=== PATIENT | female | born 1975 | race Caucasian/White ===

== ENCOUNTER 2022-07-12 15:52 | Inpatient (IN) | payer MEDICAID ==
[~2022-07-12] VITALS: Ht 149.9 cm; Wt 77.1 kg
[2022-07-12 16:02] VITALS: BP 170/97
--- NOTE | 2022-07-12 16:39 | NUR ---
pt in room 11, had ct angio done, denies any pain, nsr on cm, o2 sat 99% ra, sr up times 2
[2022-07-12 17:13] LABS: BASOPHILS % (AUTO) 0.4 % (0.0-2.0); EOSINOPHILS % (AUTO) 0.2 % (0.0-4.0); HEMATOCRIT 35.8 % (36-48); HEMOGLOBIN 12.4 g/dL (12.0-16.0); LYMPHOCYTES # (AUTO) 1.9 K/uL (2.5-16.5); LYMPHOCYTES % (AUTO) 33.9 % (20.5-51.1); MEAN CORPUSCULAR HEMOGLOBIN 30 pg (27-31); MEAN CORPUSCULAR HGB CONC 35 g/dL (33-37); MEAN CORPUSCULAR VOLUME 86.6 fL (80-94); MONOCYTES # (AUTO) 0.4 K/uL (0.8-1.0); NEUTROPHILS # (AUTO) 3.2 K/uL (1.8-7.7); NEUTROPHILS % (AUTO) 57.5 % (42.2-75.2); PLATELET COUNT (AUTO) 224 K/uL (140-450); RED BLOOD CELL COUNT(AUTO) 4.14 MIL/uL (4.20-5.40); WHITE BLOOD COUNT (AUTO) 5.5 K/uL (4.8-10.8)
[2022-07-12 17:43] LABS: PROTHROMBIN TIME 9.7 secs (10.8-13.4)
[2022-07-12 17:43] LABS: APPEARANCE,URINE CLEAR (CLEAR); BILIRUBIN,URINE NEGATIVE (NEGATIVE); BLOOD, URINE NEGATIVE (NEGATIVE); COLOR,URINE YELLOW (YELLOW); LEUKOCYTE ESTERASE ,URINE NEGATIVE (NEGATIVE); NITRITE, URINE NEGATIVE (NEGATIVE); PH,URINE 7.5 (5.0-9.0); UGLUCOSE 3+ (NEGATIVE)
[2022-07-12 17:46] LABS: ALBUMIN 4.3 g/dL (3.4-5.0); ANION GAP 10.1 (8-16); ASPARTATE AMINOTRANSFERASE 20 U/L (15-37); CARBON DIOXIDE 29.6 mmol/L (21-32); CHLORIDE 99 mmol/L (98-107); CREATININE 0.5 mg/dL (0.6-1.3); GFR ARICAN-AMERICAN 169 mL/min (>90); GLUCOSE 227 mg/dL (74-106); POTASSIUM 3.7 mmol/L (3.5-5.1); SODIUM SERUM 135 mmol/L (136-145); TOTAL BILIRUBIN 0.3 mg/dL (0.0-1.0); UREA NITROGEN, BLOOD 14 mg/dL (7-18)
--- NOTE | 2022-07-12 18:00 | NUR ---
a/o times 4, no ac neuro deficits, nsr on cm, o2 sat 99% ra, still dizzy and double vision, sr up times 2. awaits dispo
--- NOTE | 2022-07-12 18:37 | NUR ---
teleneuro done, Dr Edward Melgoza spoke and examined pt, will call back to discuss case w ER . pt to be admitted, pt told she had stroke
[2022-07-12] MEDS ORDERED: ASPIRIN 325 MG TAB PO ONE (18:40)
[2022-07-12] MEDS ORDERED: MAG SULF 2000 MG/WATER PREMIX 50 ML IV PRN (18:55)
[2022-07-12] MEDS ORDERED: MORPHINE SULFATE 2 MG/ML SYR IVP PRN (18:55)
[2022-07-12] MEDS ORDERED: POTASSIUM CHLORIDE 10 MEQ TABER PO PRN (18:55)
[2022-07-12] MEDS ORDERED: LORazepam 2 MG/ML VIAL IVP PRN (18:55)
[2022-07-12] MEDS ORDERED: ACETAMINOPHEN 325 MG TAB PO PRN (18:55)
[2022-07-12] MEDS ORDERED: ZOLPIDEM 10 MG TAB PO PRN (18:55)
[2022-07-12] MEDS ORDERED: ONDANSETRON 4 MG/2 ML VIAL IVP PRN (18:55)
[2022-07-12] MEDS ORDERED: DOCUSATE SODIUM 100 MG GELCAP PO PRN (18:55)
[2022-07-12] MEDS ORDERED: NACL 0.9% 1,000 ML IV ONE (19:00)
--- NOTE | 2022-07-12 19:22 | NUR ---
pt report to material handler 1st shift nurse, Fariha. no distress noted in pt
--- NOTE | 2022-07-12 19:30 | NUR ---
SWAB OBTAINED AND SENT TO LAB
--- NOTE | 2022-07-12 19:35 | NUR ---
DR VOGEL AT BEDSIDE
--- NOTE | 2022-07-12 20:37 | NUR ---
REPORT CALLED TO EMILIA HICKMAN
--- NOTE | 2022-07-12 21:00 | NUR ---
TO 106B VIA GURNEY ATTACHED TO TRANSPORT MONITOR ACCOMPANIED BY 2 RNS
--- NOTE | 2022-07-12 21:00 | NUR ---
RECEIVED PT FROM ER ADMITTED TO [facility] UNIT WITH CHIEF COMPLAINTS OF DIZZINESS AND DOUBLE VISION. PT IS WITH DIAGNOSIS OF CVA AND HISTORY OF HYPERTENSION. PT IS A FULL CODE STATUS AND SHE ABLE TO AMBULATES TO RESTROOM INDEPENDENTLY. PT IS AWAKE, ALERT AND ABLE TO VERBALIZED NEEDS. SHE IS AT ROOM AIR AND CURRENTLY ON NPO DIET. IV SITE IS ON LEFT AC 22G AND INFUSING OF NS WELL OF NS 100ML/HR. SKIN INTACT. SHE IS ON STANDARD ISOLATION.
--- NOTE | 2022-07-13 00:15 | NUR ---
PT SLEEPS WELL. NO SOB OR DISTRESS.
--- NOTE | 2022-07-13 02:00 | NUR ---
PT AMBULATES INDEPENDENTLY TO RESTROOM. DENIES OF PAIN OR DISCOMFORT.
[2022-07-13 04:00] VITALS: BP 131/72
[2022-07-13 07:18] LABS: BASOPHILS % (AUTO) 0.6 % (0.0-2.0); EOSINOPHILS % (AUTO) 0.7 % (0.0-4.0); HEMATOCRIT 38.1 % (36-48); LYMPHOCYTES # (AUTO) 2.8 K/uL (2.5-16.5); MEAN CORPUSCULAR HEMOGLOBIN 30 pg (27-31); MEAN CORPUSCULAR HGB CONC 34 g/dL (33-37); MEAN CORPUSCULAR VOLUME 86.8 fL (80-94); MONOCYTES # (AUTO) 0.6 K/uL (0.8-1.0); MONOCYTES % (AUTO) 9.8 % (1.7-9.3); NEUTROPHILS # (AUTO) 2.6 K/uL (1.8-7.7); NEUTROPHILS % (AUTO) 42.9 % (42.2-75.2); PLATELET COUNT (AUTO) 246 K/uL (140-450); RED BLOOD CELL COUNT(AUTO) 4.39 MIL/uL (4.20-5.40); RED CELL DISTRIBUTION WIDTH 13.1 % (11.6-13.7); WHITE BLOOD COUNT (AUTO) 6.1 K/uL (4.8-10.8)
[2022-07-13 07:25] LABS: ANION GAP 12.5 (8-16); CARBON DIOXIDE 30.5 mmol/L (21-32); CREATININE 0.6 mg/dL (0.6-1.3)
--- NOTE | 2022-07-13 07:45 | NUR ---
PT IS ON STABLE CONDITION, DENIES OF PAIN OR DISCOMFORT. NO SOB OR DISTRESS. ALL SAFETY MEASURES ARE IN PLACE. ENDORSED TO DAY SHIFT NURSE FOR CONTINUITY OF CARE.
--- NOTE | 2022-07-13 07:56 | NUR ---
PATIENT ALERT AND RESPONSIVE. FAROESE SPEAKING. ABLE TO MAKE NEEDS KNOWN. PATIENT VERBALLY RESPONSIVE. STABLE AND AFEBRILE. BREATHING EVEN AND NON LABORED. NO SOB OR DYSPNEA. PATIENT ADMITTED WITH DX: CVA. C/O DIZZINESS UPON ADMISSION. NO C/O DIZZINESS AT THIS TIME. CARDIAC MONITORING REMAINS NORMAL SINUS RHYTHM. DENIES PALPITATIONS. DENIES CP. DENIES PAIN. CONTINUED NPO. ON IVF NS @ 100ML/HR. #22G LAC DRESSING DRY, CLEAN, AND INTACT. SKIN DRY AND INTACT. PATIENT HAS BATHROOM PRIVILEGES. PATIENT INDEPENDENT WITH ADL'S. CALL LIGHT WITHIN REACH. BED LOCKED IN LOWEST POSITION. REMINDED TO USE CALL LIGHT IN NEED OF ASSISTANCE. SAFETY MEASURES OBSERVED. PATIENT SELF REPOSITIONS. REMINDED TO REPOSITION SELF Q2H. ALL NEEDS MET. CONTINUE PLAN OF CARE.
[2022-07-13] MEDS: CLOPIDOGREL 75 MG TAB PO SCH ×2 (09:00→10:44)
[2022-07-13] MEDS: ASPIRIN 81 MG TAB.CHEW PO SCH ×2 (09:20→10:44)
--- NOTE | 2022-07-13 09:22 | NUR ---
HELD 9AM MEDS DUE TO NPO FOR SWALLOW EVAL/ PROCEDURE.
--- NOTE | 2022-07-13 09:54 | NUR ---
PATIENT HAS BEEN SCREENED AND CATEGORIZED MODERATE NUTRITION RISK. PATIENT WILL BE SEEN WITHIN 3-5 DAYS OF ADMISSION. REVIEWED BY SRINIVAS SINGH RD
[2022-07-13] MEDS ORDERED: DEXTROSE 50% 50 ML SYR IVP PRN (10:15)
[2022-07-13] MEDS: ATORVASTATIN 20 MG TAB PO SCH (10:43)
--- NOTE | 2022-07-13 10:46 | NUR ---
CALLED AND SPOKE WITH MD NOTIFIED MD OF PATIENT'S BP 165/79. MD MADE AWARE AND NO BP MEDS ORDERED. PER MD ORDER TO ADMINISTER 9AM MEDICATIONS NOW AND PATIENT CAN HAVE DIET AFTER SWALLOW EVAL. ORDERS NOTED, READ BACK, AND CARRIED OUT. PATIENT MADE AWARE.
[2022-07-13] MEDS: BLOOD GLUCOSE MONITORING 1 DEV DEV FS SCH ×3 (11:54→22:00)
[2022-07-13] MEDS: INSULIN LISPRO SLIDING SCALE 100 UNITS/ML VIAL SUBQ PRN ×2 (13:16→22:06)
--- NOTE | 2022-07-13 16:37 | NUR ---
DC PLANNING SW MET WITH PT AT BEDSIDE TO COMPLETE ASSESSMENT. PT PRIMARILY [place] SPEAKING, THEREFORE JOGGER OPERATOR SERVICE UTILIZED; [id number]/ [place]/ PT REPORTS RESIDING IN A TWO STORY HOME WITH HER SPOUSE, TWO SONS (17, 21), AND 4 COUSINS. PT IDENTIFIED MAT VELAZQUEZ, SPOUSE, EMERGENCY CONTACT. PT DECLINED TO ADD AN ADDITIONAL EC. PT REPORTS MEETING WITH PCP AT [facility], REGULARLY, LAST VISIT; 2 MONTHS AGO. PT REPORTS MEDICATION COMPLIANCE AND DENIES BARRIERS IN ACCESS TO NEEDED MEDICATIONS. PT REPORTS RECEIVING MEDICATION FROM [facility] ON [address] IN [place], WHEN NEEDED. PT REPORTS BEING INDEPENDENT IN ALL ACTIVITIES AND DENIES USE OF DME. PT REPORTS HX OF DIABETES THAT SHE REPORTS IS WELL MANAGED. PT REPORTS ADEQUATE FOOD IN THE HOME AND ADEQUATE FAMILY SUPPORT THAT FAMILY CAN AID IN, IF REQUIRED. PT REPORTS TENTATIVE DC PLAN IS FOR PT TO RETURN HOME WITH SPOUSE PROVIDING TRANSPORTATION, WHEN MEDICALLY STABLE. SW INQUIRED ON RESOURCES NEEDED, PT DECLINED. Addendum: 07/13/22 at 1639 by Maya LOPES Amended: Links added.
--- NOTE | 2022-07-13 18:20 | NUR ---
PT WAS SEEN FOR DYSPHAGIA. PT WAS ABLE TO SAFELY SWALLOW MS DIET WITH THIN LIQUID WITHOUT OVERT S/S OF ASPIRATION. RECOMMENDATION MS DIET WITH THIN LIQUID
--- NOTE | 2022-07-13 19:30 | NUR ---
RECEIVED ENDORSEMENT FROM DAY SHIFT NURSE FOR CONTINUITY OF CARE. PT IS ON BED AWAKE, ALERT AND VERBALLY RESPONSIVE. IS ON BEDSIDE. PT IS NOW ON CONSISTENT CARB DIET. PT CONSUME DINNER 100% WITH NO PROBLEM ON SWALLOWING. PT STATED THAT SHE ALSO SWALLOW FLUIDS WITH NO COUGH OR GAGGING. IV ON LEFT AC 22G INTACT AND IV FLUID NS INFUSING WELL AT 100ML/H. PT IS RELAX ON BED, DENIES OF PAIN OR DISCOMFORT.
--- NOTE | 2022-07-13 22:06 | NUR ---
BLOOD SUGAR CHECK = 170 = 2 UNITS HUMOLOG INSULIN ADMINISTERED SLIDING SCALE.
--- NOTE | 2022-07-14 00:30 | NUR ---
PT IS WELL ASLEEP. NO SOB OR DISTRESS
[2022-07-14] MEDS: BLOOD GLUCOSE MONITORING 1 DEV DEV FS SCH ×4 (06:45→20:14)
--- NOTE | 2022-07-14 06:45 | NUR ---
BLOOD SUGAR CHECK = 140, NO SLIDING SCALE COVERAGE. NO INSULIN NEEDED.
[2022-07-14 06:58] LABS: BASOPHILS % (AUTO) 0.5 % (0.0-2.0); EOSINOPHILS # (AUTO) 0.1 K/uL (0-0.4); EOSINOPHILS % (AUTO) 1.1 % (0.0-4.0); HEMATOCRIT 37.3 % (36-48); HEMOGLOBIN 12.9 g/dL (12.0-16.0); LYMPHOCYTES # (AUTO) 2.6 K/uL (2.5-16.5); LYMPHOCYTES % (AUTO) 47.2 % (20.5-51.1); MEAN CORPUSCULAR HEMOGLOBIN 30 pg (27-31); MEAN CORPUSCULAR HGB CONC 34 g/dL (33-37); MEAN CORPUSCULAR VOLUME 86.2 fL (80-94); MONOCYTES # (AUTO) 0.5 K/uL (0.8-1.0); MONOCYTES % (AUTO) 8.8 % (1.7-9.3); NEUTROPHILS # (AUTO) 2.3 K/uL (1.8-7.7); NEUTROPHILS % (AUTO) 42.4 % (42.2-75.2); PLATELET COUNT (AUTO) 224 K/uL (140-450); RED BLOOD CELL COUNT(AUTO) 4.33 MIL/uL (4.20-5.40); RED CELL DISTRIBUTION WIDTH 13.2 % (11.6-13.7); WHITE BLOOD COUNT (AUTO) 5.5 K/uL (4.8-10.8)
[2022-07-14 07:11] LABS: ANION GAP 9.6 (8-16); CARBON DIOXIDE 27.4 mmol/L (21-32); CREATININE 0.6 mg/dL (0.6-1.3)
[2022-07-14 08:00] VITALS: BP 131/62
--- NOTE | 2022-07-14 08:00 | NUR ---
RECEIVED REPORT FROM ROCK LOADER FOR CONTINUITY OF CARE. PATIENT ALERT AWAKE ORIENTED X4, GEORGIAN SPEAKING. ON HEART MONITOR SHOWS SR. DENIES DIZZINESS AT THIS TIME. PATIENT FOR MRI THE HEAD TODAY, NETWORK CONTRACTOR WORKING ON IT. MARICEL INITIATED. WILL CONTINUE TO MONITOR.
[2022-07-14] MEDS: ATORVASTATIN 20 MG TAB PO SCH (09:19)
--- NOTE | 2022-07-14 11:30 | NUR ---
BS CHECKED 221, WITH INSULIN COVERAGE GIVEN ORDER.
[2022-07-14 12:00] VITALS: BP 141/78
[2022-07-14] MEDS: INSULIN LISPRO SLIDING SCALE 100 UNITS/ML VIAL SUBQ PRN ×2 (12:13→17:31)
--- NOTE | 2022-07-14 14:27 | NUR ---
[facility] HERE TO THERAPEUTIC RECREATION LEADER PATIENT FOR MRI, ALERT AWAKE ORIENTED X4, IN STABLE CONDITION. REPORT GIVEN TO [facility] AT BEDSIDE.
[2022-07-14 16:00] VITALS: BP 136/72
--- NOTE | 2022-07-14 16:20 | NUR ---
PATIENT CAME BACK FROM MRI, ALERT AWAKE ORIENTED. VITALS TAKEN.
--- NOTE | 2022-07-14 19:22 | NUR ---
REPORT GIVEN TO SOFTWARE DEVELOPMENT ADVISOR FOR CONTINUITY OF CARE. PATIENT DENIES CHEST PAIN AND DIZZINESS. IN STABLE CONDITION.
[2022-07-14 20:00] VITALS: BP 132/70
[2022-07-15 00:01] VITALS: BP 128/69
[2022-07-15 04:13] VITALS: BP 118/71
[2022-07-15] MEDS: BLOOD GLUCOSE MONITORING 1 DEV DEV FS SCH ×4 (06:33→20:30)
[2022-07-15] MEDS: INSULIN LISPRO SLIDING SCALE 100 UNITS/ML VIAL SUBQ PRN ×4 (06:33→20:32)
[2022-07-15 07:29] LABS: BASOPHILS % (AUTO) 0.3 % (0.0-2.0); EOSINOPHILS # (AUTO) 0.1 K/uL (0-0.4); EOSINOPHILS % (AUTO) 1.2 % (0.0-4.0); HEMATOCRIT 39.5 % (36-48); HEMOGLOBIN 13.5 g/dL (12.0-16.0); LYMPHOCYTES # (AUTO) 2.5 K/uL (2.5-16.5); LYMPHOCYTES % (AUTO) 45.8 % (20.5-51.1); MEAN CORPUSCULAR HEMOGLOBIN 30 pg (27-31); MEAN CORPUSCULAR HGB CONC 34 g/dL (33-37); MEAN CORPUSCULAR VOLUME 88.3 fL (80-94); MONOCYTES # (AUTO) 0.5 K/uL (0.8-1.0); MONOCYTES % (AUTO) 9.5 % (1.7-9.3); NEUTROPHILS # (AUTO) 2.3 K/uL (1.8-7.7); NEUTROPHILS % (AUTO) 43.2 % (42.2-75.2); PLATELET COUNT (AUTO) 249 K/uL (140-450); RED BLOOD CELL COUNT(AUTO) 4.47 MIL/uL (4.20-5.40); WHITE BLOOD COUNT (AUTO) 5.4 K/uL (4.8-10.8)
--- NOTE | 2022-07-15 07:52 | NUR ---
RECEIVED REPORT FROM GRAIN OPERATIONS MANAGER FOR CONTINUITY OF CARE. PATIENT ALERT AWAKE ORIENTED X4, NOT IN ANY DISTRESS NOTED. DENIES DIZZINESS, NO C/O PAIN. BED IN LOW POSITION, CALL LIGHT WITHIN REACH. NEEDS ATTENDED. WILL CONTINUE TO MONITOR.
[2022-07-15 08:00] VITALS: BP 130/76
[2022-07-15] MEDS: ATORVASTATIN 20 MG TAB PO SCH (08:43)
[2022-07-15 09:10] LABS: ANION GAP 11.7 (8-16); CARBON DIOXIDE 29.2 mmol/L (21-32); CREATININE 0.6 mg/dL (0.6-1.3); POTASSIUM 3.9 mmol/L (3.5-5.1)
[2022-07-15] MEDS ORDERED: MAGNESIUM HYDROXIDE 2400 MG/30 ML UDC PO PRN (09:25)
[2022-07-15] MEDS ORDERED: MAGNESIUM HYDROXIDE 2400 MG/30 ML UDC PO SCH (09:27)
[2022-07-15] MEDS: ASPIRIN 81 MG TAB.CHEW PO SCH (09:54)
[2022-07-15] MEDS: CLOPIDOGREL 75 MG TAB PO SCH (09:54)
[2022-07-15 12:00] VITALS: BP 155/77
--- NOTE | 2022-07-15 14:00 | NUR ---
PATIENT RESTING IN BED, SEEN BY PT TODAY. WILL CONTINUE TO MONITOR.
[2022-07-15 16:00] VITALS: BP 144/81
--- NOTE | 2022-07-15 19:18 | NUR ---
REPORT GIVEN TO THE ASSOCIATE PROFESSOR OF MEDIA ARTS FOR CONTINUITY OF CARE. IN STABLE CONDITION.
--- NOTE | 2022-07-15 19:25 | NUR ---
RECEIVED REPORT FROM DAY SHIFT NURSE FOR CONTINUITY OF CARE. PATIENT IS STABLE IN BED, A&O X4, PRIMARILY TURKISH SPEAKING. PATIENT HAS NO COMPLAINTS ABOUT ANY PAIN. PATIENT IS ON ROOM AIR, WITH NO APPARENT S/S OF DISTRESS. PATIENT HAS IV LOCATED IN THE LEFT AC 22 GAUGE. SKIN IS INTACT. ALL SAFETY MEASURES IN PLACE, BED AT LOWEST POINT, AND CALL LIGHT WITHIN REACH, ENCOURAGED TO USE IF ANY ASSISTANCE IS REQUIRED. WILL CONTINUE TO MONITOR.
[2022-07-15 20:00] VITALS: BP 129/74
--- NOTE | 2022-07-15 20:30 | NUR ---
SCHEDULED BLOOD GLUCOSE CHECK GIVEN. PATIENT HAD A BLOOD GLUCOSE LEVEL OF 225, 4 UNITS OF HUMALOG WAS GIVEN IN THE ABDOMEN. WILL CONTINUE TO MONITOR.
[2022-07-16] VITALS: BP 144/77
[2022-07-16 04:00] VITALS: BP 125/69
[2022-07-16] MEDS: INSULIN LISPRO SLIDING SCALE 100 UNITS/ML VIAL SUBQ PRN (06:17)
[2022-07-16] MEDS: BLOOD GLUCOSE MONITORING 1 DEV DEV FS SCH ×2 (06:22→11:30)
--- NOTE | 2022-07-16 06:55 | NUR ---
PT IS STABLE. NO ACUTE EVENTS THROUGHOUT THE NIGHT. NO S/SX OF DISTRESS AT THIS MOMENT. ALL NEEDS MET. NO COMPLAINS OF PAIN AT THIS TIME.ALL PRECAUTIONS IN PLACE. CALL LIGHT WITHIN REACH. WILL ENDORSE TO DAY SHIFT RN.
--- NOTE | 2022-07-16 07:10 | NUR ---
RECEIVED REPORT FROM MUSICAL INSTRUMENT MAKER NURSE SOPHIA FOR CONTINUITY OF CARE. PT STABLE AT THIS TIME.
[2022-07-16 07:15] LABS: BASOPHILS % (AUTO) 0.2 % (0.0-2.0); EOSINOPHILS # (AUTO) 0.1 K/uL (0-0.4); EOSINOPHILS % (AUTO) 1.1 % (0.0-4.0); HEMATOCRIT 39.7 % (36-48); HEMOGLOBIN 13.6 g/dL (12.0-16.0); LYMPHOCYTES # (AUTO) 2.3 K/uL (2.5-16.5); LYMPHOCYTES % (AUTO) 40.4 % (20.5-51.1); MEAN CORPUSCULAR HEMOGLOBIN 30 pg (27-31); MEAN CORPUSCULAR HGB CONC 34 g/dL (33-37); MEAN CORPUSCULAR VOLUME 88.1 fL (80-94); MONOCYTES # (AUTO) 0.6 K/uL (0.8-1.0); MONOCYTES % (AUTO) 9.9 % (1.7-9.3); NEUTROPHILS # (AUTO) 2.8 K/uL (1.8-7.7); NEUTROPHILS % (AUTO) 48.4 % (42.2-75.2); PLATELET COUNT (AUTO) 233 K/uL (140-450); RED BLOOD CELL COUNT(AUTO) 4.51 MIL/uL (4.20-5.40); WHITE BLOOD COUNT (AUTO) 5.7 K/uL (4.8-10.8)
[2022-07-16 07:22] LABS: ANION GAP 11.4 (8-16); CARBON DIOXIDE 29.5 mmol/L (21-32); CREATININE 0.7 mg/dL (0.6-1.3); POTASSIUM 3.9 mmol/L (3.5-5.1)
[2022-07-16 08:00] VITALS: BP 142/78
[2022-07-16] MEDS ORDERED: metFORMIN 500 MG TAB PO SCH (08:00)
[2022-07-16] MEDS ORDERED: ASPI81CT95 PO (09:07)
[2022-07-16] MEDS ORDERED: METF-346 PO (09:09)
[2022-07-16] MEDS ORDERED: ATOR20TA40 PO (09:09)
[2022-07-16] MEDS ORDERED: CLOP75TA55 PO (09:09)
[2022-07-16] MEDS: CLOPIDOGREL 75 MG TAB PO SCH (09:13)
[2022-07-16] MEDS: ATORVASTATIN 20 MG TAB PO SCH (09:13)
[2022-07-16] MEDS: ASPIRIN 81 MG TAB.CHEW PO SCH (09:13)
[2022-07-16 10:41] VITALS: BP 142/78
== END 2022-07-16 12:10 | disposition home or self-care (01) | DRG 45 ==
LOC: MED 15:52 → MTU 18:54
PROVIDERS: ADMIT Family Medicine; ATTEND Family Medicine
DX: I63.9 Cerebral infarction, unspecified (principal); E87.1 Hypo-osmolality and hyponatremia; E11.65 Type 2 diabetes mellitus with hyperglycemia; I65.01 Occlusion and stenosis of right vertebral artery; H51.22 Internuclear ophthalmoplegia, left eye; I10 Essential (primary) hypertension; R29.701 NIHSS score 1; Z20.822 Contact with and (suspected) exposure to COVID-19
CPT/HCPCS: 36415; 70450; 71045; 80048; 80053; 81003; 82948; 83036; 83735; 84484; 85025; 85610; 85730; 86886; 86900; 86901; 87081; 92610; 93005; 97112; 97116; 97163-GP; 97530; 99291; J1815; Q9967

== ENCOUNTER 2022-11-18 21:08 | Emergency (ER) | payer MEDICAID ==
[~2022-11-18] VITALS: Ht 149.9 cm; Wt 53.5 kg
[~2022-11-18 21:08] MED LIST: ASPI81CT95 PO; ATOR20TA40 PO; CLOP75TA55 PO; METF-346 PO
[2022-11-18 21:14] VITALS: BP 155/98
[2022-11-18] MEDS ORDERED: HYDROcodone/APAP 5/325 MG 1 TAB TAB PO ONE (22:50)
[2022-11-19] MEDS ORDERED: IBUP-1842 PO (01:01)
[2022-11-19] MEDS ORDERED: ACET-8905 PO (01:01)
[2022-11-19 01:31] VITALS: BP 148/78
--- NOTE | 2022-11-19 01:31 | NUR ---
Patient discharged with v/s stable. Written and verbal after care instructions given and explained. New rx norco and motrin. Patient verbalized understanding. Ambulatory with steady gait. All questions addressed prior to discharge. Advised to follow up with PMD.
== END 2022-11-19 01:31 | disposition home or self-care (01) ==
LOC: MED 21:08
DX: S00.83XA Contusion of other part of head, initial encounter (principal); S60.212A Contusion of left wrist, initial encounter; E11.9 Type 2 diabetes mellitus without complications; I10 Essential (primary) hypertension; Z79.899 Other long term (current) drug therapy; Z79.84 Long term (current) use of oral hypoglycemic drugs; W01.0XXA Fall on same level from slipping, tripping and stumbling without subsequent striking against object, initial encounter; Y93.89 Activity, other specified; Y92.89 Other specified places as the place of occurrence of the external cause; Y99.8 Other external cause status
CPT/HCPCS: 70450; 70486; 72125; 73110; 99285